=== PATIENT | male | born 1955 | race Caucasian/White ===

== ENCOUNTER 2020-03-02 16:54 | Observation (INO) ==
[2020-03-02] MEDS ORDERED: NS 0.9% 1000 ml BAG 1,000 ML IV ONE (17:32)
[2020-03-02 17:39] LABS: ABS Eosinophils 0.1 10^3/ul (0-0.6); ABS Lymphocytes 1.3 10^3/ul (1.0-4.8); ABS Monocytes 0.6 10^3/ul (0-0.8); ABS Neutrophils 3.7 10^3/ul (1.5-7.7); Eosinophil % 2.4 %; Hematocrit 45 % (42-52); Hemoglobin 15.5 g/dL (14.0-18.0); Lymphocyte % 22.4 %; Mean Corpuscular HGB Conc 34 g/dL (31-36); Mean Corpuscular Hemoglobin 29 pg (27-31); Mean Corpuscular Volume 85 fL (80-94); Mean Platelet Volume 9.4 fL (7.4-10.4); Platelet Count 148 10^3/uL (150-450); Red Blood Count 5.36 10^6 /uL (4.18-5.48); Red Cell Distribution Width 13 % (10-15); White Blood Count 5.7 10^3/uL (3.5-10.8)
[2020-03-02 17:55] LABS: ALT 20 U/L (7-52); Albumin 4.2 g/dL (3.2-5.2); Albumin/Globulin Ratio 1.8 (1-3); Alkaline Phosphatase 43 U/L (34-104); BUN/Creatinine Ratio 12.9 (8-20); Blood Urea Nitrogen 15 mg/dL (6-24); CO2 Carbon Dioxide 26 mmol/L (22-32); Calcium 8.9 mg/dL (8.6-10.3); Chloride 109 mmol/L (101-111); EGFR African American 76.9 (>60); EGFR Non-African American 63.6 (>60); Globulin 2.4 g/dL (2-4); Glucose 98 mg/dL (70-100); Magnesium 2.1 mg/dL (1.9-2.7); Sodium 141 mmol/L (135-145); Total Protein 6.6 g/dL (6.4-8.9)
[2020-03-02 18:00] LABS: AST 25 U/L (13-39); Anion Gap 6 mmol/L (2-11); Potassium 4.3 mmol/L (3.5-5.0)
[2020-03-02 18:24] LABS: TSH Ultra Thyroid Stim Horm 2.24 mcIU/mL (0.34-5.60)
[2020-03-02] MEDS ORDERED: Iohexol 350 (CONTRAST) 500 ML MDV IV ONE (20:54)
[2020-03-02 20:57] LABS: C Reactive Protein < 1.00 mg/L (<8.01)
[2020-03-02] MEDS ORDERED: Enoxaparin 40 MG/0.4 ML SYR SUBCUT SCH (22:30)
[2020-03-02 23:36] LABS: Erythrocyte Sed Rate 2 mm/Hr (0-19)
[2020-03-03 06:57] LABS: Calcium 8.3 mg/dL (8.6-10.3); EGFR African American 91.3 (>60); EGFR Non-African American 75.5 (>60); HDL Cholesterol 44.6 mg/dL; Potassium 4.2 mmol/L (3.5-5.0)
[2020-03-03 14:24] VITALS: BP 123/81
== END 2020-03-03 15:00 | disposition home or self-care (01) ==
LOC: ED 16:54 → MEDTELE 16:54
PROVIDERS: ADMIT Internal Medicine; ATTEND Student in an Organized Health Care Education/Training Program